=== PATIENT | male | born 1975 | race Two or more races ===

== ENCOUNTER 2022-02-17 20:49 | Emergency (ER) | payer MEDICAID ==
[~2022-02-17] VITALS: Ht 167.6 cm; Wt 117.0 kg
[2022-02-18 00:32] VITALS: BP 105/62
== END 2022-02-18 01:39 | disposition home or self-care (01) ==
LOC: ER 20:49
DX: S86.891A Other injury of other muscle(s) and tendon(s) at lower leg level, right leg, initial encounter (principal); X58.XXXA Exposure to other specified factors, initial encounter; Y93.89 Activity, other specified; Y92.89 Other specified places as the place of occurrence of the external cause; Y99.8 Other external cause status